=== PATIENT | female | born 1950 | race Caucasian/White ===

== ENCOUNTER → 2018-01-04 | Outpatient (CLI) | payer MEDICARE | LOC: M.RAD 08:58 | DX: Z12.31 Encounter for screening mammogram for malignant neoplasm of breast (principal) ==

== ENCOUNTER → 2019-01-03 | Outpatient (CLI) | payer MEDICARE | LOC: M.RAD 13:50 | DX: I51.7 Cardiomegaly (principal) ==

== ENCOUNTER → 2019-05-01 | Outpatient (CLI) | payer MEDICARE | LOC: M.RAD 12:28 | DX: Z12.31 Encounter for screening mammogram for malignant neoplasm of breast (principal) ==

== ENCOUNTER → 2020-01-31 | Outpatient (CLI) | payer MEDICARE | LOC: M.RAD 01-30 10:26 | PROVIDERS: ATTEND Internal Medicine | DX: M85.88 Other specified disorders of bone density and structure, other site (principal) ==

== ENCOUNTER → 2020-07-24 | Outpatient (CLI) | payer MEDICARE | LOC: M.RAD 07-23 09:50 | PROVIDERS: ATTEND Internal Medicine | DX: Z12.31 Encounter for screening mammogram for malignant neoplasm of breast (principal) ==